=== PATIENT | male | born 1985 | race Caucasian/White ===

== ENCOUNTER 2017-03-05 08:29 | Observation (INO) ==
--- NOTE | 2017-03-05 08:54 | Emergency Department Note ---
Disposition Clinical Impression: Acute kidney injury Epileptic seizure Qualifiers: Epilepsy type: unspecified Intractability: not intractable Status epilepticus: without status epilepticus Qualified Code(s): G40.909 - Epilepsy, unspecified, not intractable, without status epilepticus Disposition: Admitted As Inpatient Condition: Good Referrals: NONE,PCP [Primary Care Provider] - Forms: ED Satisfaction Letter Time of Disposition: 09:29 Seizure HPI - General Chief Complaint: ED Seizure Stated Complaint: Seizures Time Seen by Provider: 03/05/17 08:50 Source: EMS Mode of arrival: other (Police) Limitations: no limitations Nursing Notes Reviewed: Yes Vital Signs Reviewed: Yes - History of Present Illness HPI Narrative: 31-year-old who has a seizure disorder comes in with apparent seizure. The patient is under the custody of police department apparently for a drug abuse. The patient states he is on a medication for seizures which he has a history of but he doesn't know the name when I review his records he was seen here in November and started on Keppra. Pt Subjective Complaint: seizure Onset (ago): Just [employer] Description of Episode: tonic-clonic movement Witnessed: yes - by bystander Associated trauma secondary to event: No Seizure History: known seizure disorder Place: other (Care Home) Possible Precipitating Event: drug use Associated symptoms: Reports: denies other symptoms Treatments prior to arrival: none - Related Data Previous Rx's Medication Instructions Recorded Nicotine Patch [Nicoderm] 14 mg TD DAILY 11/28/16 levETIRAcetam [Keppra] 1,000 mg PO Q12HR #60 tab 11/28/16 Allergies Allergy/AdvReac Type Severity Reaction Status Date / Time No Known Allergies Allergy Verified 10/02/15 11:09 All systems ED: reviewed and negative except as stated. Constitutional: Denies: fever, chills, weakness, weight change Eyes: Denies: eye pain, eye discharge, vision change ENT ED: Denies: ear pain, throat pain, dental pain, hearing loss, epistaxis, congestion, dysphagia Cardiovascular: Denies: chest pain, palpitations, dyspnea on exertion, edema, syncope Respiratory: Denies: cough, dyspnea, wheezes, hemoptysis, stridor Gastrointestinal: Denies: abdominal pain, nausea, vomiting, diarrhea, constipation, hematemesis, melena, hematochezia Genitourinary: Denies: urgency, dysuria, frequency, hematuria Musculoskeletal: Denies: back pain, neck pain, arthralgia, myalgia Integumentary: Denies: rash, abrasion, lesions Neurological: Reports: other (Recurrent seizures). Denies: headache, weakness, numbness, paresthesias, confusion, abnormal gait, vertigo Psychiatric: Denies: anxiety, depression, suicidal thoughts, homicidal thoughts , auditory hallucinations, visual hallucinations Endocrine: Denies: fatigue Hematological/Lymphatic: Denies: easy bleeding, easy bruising Allergic/Immunologic: Denies: facial swelling, urticaria Past Medical History - Past Medical History Medical history: Reports: seizures Psychiatric history: Reports: no psych history - Social History Smoking Status: Current every day smoker Smokeless Tobacco Status: No Alcohol use: Reports: none Drug use: Reports: none Physical Exam - General Limitations: no limitations General appearance: alert, in no apparent distress - Head Head exam: atraumatic, normocephalic, normal inspection - Eye Eye exam: Present: normal appearance, PERRL, EOMI - ENT ENT exam: normal exam, normal oropharynx, mucous membranes moist - Neck Neck exam: Present: normal inspection, full ROM, trachea midline - Chest Chest inspection: Present: normal inspection, symmetric chest wall rise - Respiratory Respiratory exam: Present: normal lung sounds bilaterally - Cardiovascular Cardiovascular exam: Present: regular rate, normal rhythm, normal heart sounds - Abdominal Exam Abdominal exam: Present: soft, Non-Tender. Absent: tenderness, distention, guarding, rebound, rigidity - Extremities Exam Extremities exam: Present: normal inspection, full ROM. Absent: tenderness, pedal edema - Expanded Lower Extremity Exam Neurovascular/Tendon exam: Absent: motor deficit, sensory deficit, tendon deficit Gait: not tested/not observed - Back Exam Back exam: Present: normal inspection, full ROM. Absent: tenderness - Neurological Exam Neurological exam: Present: alert, oriented X3 - Psychiatric Psychiatric exam: Present: normal affect, normal mood - Skin Skin exam: Present: warm, dry, intact, normal color Course - Reevaluation(s) Reevaluation #1: 31-year-old history of drug abuse who comes in with recurrent seizures. Patient also has a history of seizure disorder and is on Keppra. Labs are noted to show an acute kidney injury. Patient will be admitted for IV hydration and evaluation of seizures. Time: 09:37 - Consultations Consultation #1: Discussed with adm José Manuelit. Time: 09:36 Vital Signs Temperature 97.6 F 03/05/17 08:30 Pulse Rate 112 03/05/17 08:30 Respiratory Rate 24 03/05/17 08:30 Blood Pressure 122/88 03/05/17 08:30 O2 Sat by Pulse Oximetry 98 03/05/17 08:30 Temperature 97.6 F 03/05/17 08:30 Pulse Rate 112 03/05/17 08:30 Respiratory Rate 24 03/05/17 08:30 Blood Pressure 122/88 03/05/17 08:30 O2 Sat by Pulse Oximetry 98 03/05/17 08:30 Oxygen Delivery Oxygen Delivery Room Air Seizure - Lab Data Lab results reviewed: Yes I reviewed the patient's lab results. Result diagrams: 03/05/17 09:00 03/05/17 09:00 Lab Results 03/05/17 03/05/17 Range/Units 09:00 09:00 WBC 8.8 (4.3-11.1) K/mcL RBC 5.24 (4.19-5.50) M/mcL Hgb 15.1 (12.9-16.9) g/dL Hct 44.2 (37.5-50.1) % MCV 84.4 (83.0-100.0) fL MCH 28.8 (28.0-33.3) pg MCHC 34.2 (31.6-35.5) g/dL RDW 12.6 (11.5-14.5) % Plt Count 269 (140-400) K/mcL MPV 9.3 L (9.4-12.4) fL Immature Gran % 0.3 (0-4) % Seg Neutrophils % 75.5 % Lymphocytes % 16.4 % Monocytes % 7.6 % Eosinophils % 0.0 % Basophils % 0.2 % Neutrophils # 6.6 (1.6-8.9) K/mcL Lymphocytes # 1.4 (0.6-4.6) K/mcL Monocytes # 0.7 (0.0-1.3) K/mcL Eosinophils # 0.0 (0.0-0.6) K/mcL Basophils # 0.0 (0.0-0.2) K/mcL Sodium 135 L (136-145) mEq/L Potassium 3.8 (3.5-4.5) mEq/L Chloride 100 (98-109) mEq/L Carbon Dioxide 24 (19-29) mEq/L BUN 25 (8-26) mg/dL Creatinine 2.93 H (0.72-1.25) mg/dL Est GFR ( Amer) 30 L (> 60) Est GFR (Non-Af Amer) 25 L (> 60) BUN/Creatinine Ratio 9 (6-26) Glucose 120 H (70-99) mg/dL Calculated Osmolality 286 (280-300) Calcium 9.8 (8.6-10.8) mg/dL - EKG Data EKG attestation: Yes I reviewed and interpreted this EKG. EKG shows normal: sinus rhythm Rate: normal Rhythm: NSR Interpretation: no acute changes
[2017-03-05 09:07] LABS: Basophils % 0.2 %; Hematocrit 44.2 % (37.5-50.1); Hemoglobin 15.1 g/dL (12.9-16.9); Immature Granulocytes % 0.3 % (0-4); Lymphocytes # 1.4 K/mcL (0.6-4.6); Lymphocytes % 16.4 %; Mean Corpuscular HGB Conc 34.2 g/dL (31.6-35.5); Mean Corpuscular Hemoglobin 28.8 pg (28.0-33.3); Mean Corpuscular Volume 84.4 fL (83.0-100.0); Mean Platelet Volume 9.3 fL (9.4-12.4); Monocytes # 0.7 K/mcL (0.0-1.3); Monocytes % 7.6 %; Neutrophils # 6.6 K/mcL (1.6-8.9); Platelet Count 269 K/mcL (140-400); Red Blood Count 5.24 M/mcL (4.19-5.50); Red Cell Distribution Width 12.6 % (11.5-14.5); Segmented Neutrophils % 75.5 %
[2017-03-05 09:19] LABS: Calcium 9.8 mg/dL (8.6-10.8); Potassium 3.8 mEq/L (3.5-4.5)
[2017-03-05] MEDS ORDERED: 0.9 % Sodium Chloride 1,000 ML IVC ONE (09:25)
[2017-03-05 10:44] VITALS: BP 125/89
[2017-03-05] MEDS ORDERED: Naloxone 0.4 MG/ML INJ IVP PRN (11:17)
[2017-03-05] MEDS ORDERED: Ondansetron 4 MG/2 ML VIAL IVP PRN (11:17)
[2017-03-05] MEDS ORDERED: Acetaminophen 325 MG TABLET PO PRN (11:17)
[2017-03-05] MEDS ORDERED: 0.9 % Sodium Chloride 1,000 ML IVC SCH (11:30)
--- NOTE | 2017-03-05 11:40 | Internal Med History&Physical ---
<Cassi Duncan - Last Filed: 03/05/17 12:38> Date of Encounter: 03/05/17 Time of Encounter: 11:33 Assessment and Plan (1) Seizure Status: Acute 1 patient has a past history of seizures he has been noncompliant with his medications. He is a IV drug user Recently he has been in residential where he had a seizure this morning. We will give thousand milligrams of Keppra now and 500 twice a day adjust for AK I-I did review dosage with pharmacy due to AK I Continue with seizure precautions Keppra level has been obtained awaiting results Patient has not been compliant with [id number] consult is needed Ativan as needed for seizures (2) Acute kidney injury Status: Acute Patient's creatinine is elevated 2.93 baseline is less than 1 suspect related to dehydration. We will give IV fluids and recheck creatinine. No improvement we will contact nephrology Will avoid nephrotoxins and renally dose medications Maintain MAP greater than 60 (3) IV drug user Status: Acute Patient did go through rehabilitation in November however he has relapsed and is currently using heroin. We did discuss possible reentry to rehabilitation however he is not interested Monitor for withdrawal symptoms Seizure precautions (4) DVT prophylaxis Status: Acute Internal Medicine - H&P: HPI Chief complaint: seizure Admitted From: Emergency Dept Plans for Post Hospital Care: Home History of present illness: Mr. Hussein is a 31 year old male has medical history for seizure disorder chiari malformation, status post posterior fossa surgery. Patient has had seizures since he was approximately [age] years old and was on multiple seizure medication. At age 14 he had chiari malformation surgery and after the surgery his seizures significantly improved and he was off his medications. Patient is also a known IV drug user he was recently in drug rehabilitation in November and after discharge he had a seizure. He was admitted to this facility at that time and was initiated on Keppra thousand milligrams twice a day per neurology. Patient did not follow-up with neurology after discharge. Today he was arrested and in residential for drug abuse and had a seizure. He was brought to the ER for evaluation. Lab work was obtained which did show an AK I and he has been admitted for further workup and evaluation presently patient is alert and appropriate no seizure activity noted at this time. He is hemodynamically stable M Past Med Surg Social Fam HX - Past Medical History Medical history: seizures Psychiatric history: no psych history - Social History Smoking Status: Current every day smoker Packs per day: 2 Smokeless Tobacco Status: No Alcohol use: none Drug use: IV Drug Use - Family History Mother Living Status: Still Living Hx Family Cardiac Disorders: No Hx Family Respiratory Disorders: No Hx Family Cancer: No Hx Family GI Disorders: No Hx Family Endocrine Disorder: No Hx Family Neuromuscular Disorders: No Hx Family Neurologic Disorders: No Hx Family HEENT Disorders: No Hx Family Autoimmune Disorders: No Internal Medicine - H&P: Meds levETIRAcetam [Keppra] 1,000 mg PO Q12HR #60 tab 11/28/16 [Rx] 3 Allergy/AdvReac Type Severity Reaction Status Date / Time No Known Allergies Allergy Verified 10/02/15 11:09 All Systems PM: A 10-system review of systems was performed and is negative for pertinent findings except as documented above in the HPI. - Constitutional Constitutional: anorexia, weight loss, no chills, no fever(s), no night sweats - EENT Eyes: no change in vision, no discharge, no pain, no photophobia Nose, mouth and throat: no dysphagia, no nasal discharge, no neck pain, no sore throat - Cardiovascular Cardiovascular ROS IM: no chest pain, no diaphoresis, no dyspnea, no lightheadedness, no palpitations, no syncope - Respiratory Respiratory: cough - Gastrointestinal Gastrointestinal: no abdominal pain, no diarrhea, no hematemesis, no hematochezia, no melena, no nausea, no vomiting - Musculoskeletal Musculoskeletal ROS IM: no numbness, no tingling - Integumentary Integumentary IM: no rash, no unusual bruising - Neurological Neurological ROS: no confusion, no convulsions, no focal weakness, no numbness, no tingling, no tremor(s) - Hematologic/Lymphatic Hematologic/Lymphatic: no easy bruising - Constitutional Vitals: Temp Pulse Resp BP Pulse Ox 97.7 F 83 18 125/89 99 03/05/17 10:43 03/05/17 10:43 03/05/17 10:43 03/05/17 10:43 03/05/17 10:43 General appearance: Present: cachectic, A&O X 3 - Head Head exam: Present: atraumatic, normocephalic - Eye Eye exam: Present: PERRL, conjuntiva pink, sclera anicteric Pupils: Present: PERRL - Neck Neck exam general surgery: Present: supple, trachea midline. Absent: lymphadenopathy - Respiratory Respiratory exam: Present: CTAB. Absent: accessory muscle use, rales, rhonchi, wheezes - Cardiovascular Cardiovascular exam: Present: RRR, +S1, +S2. Absent: diastolic murmur, gallop, rubs, systolic murmur - GI/Abdominal GI/Abdominal exam: Present: normal bowel sounds, soft, no peritoneal signs. Absent: distended, tenderness - Extremities Exam Extremities exam: Present: warm, radial pulses palpable and symmetrical. Absent : calf tenderness, cyanotic, pedal edema - Neurological Exam Neurological exam: Present: CN II-XII intact, oriented X3, no focal deficits. Absent: pronater drift, facial droop, speech deficit - Skin Skin exam: Present: dry, intact Internal Med - H&P Results - Labs CBC & Chem 7: 03/05/17 09:00 03/05/17 09:00 <Yogesh Goodwin P - Last Filed: 03/08/17 07:46> Date of Encounter: 03/08/17 Internal Medicine - H&P: HPI History of present illness: Mr. Hussein is a 31 year old male All Systems PM: A 10-system review of systems was performed and is negative for pertinent findings except as documented above in the HPI. - Constitutional Vitals: Temp Pulse Resp BP Pulse Ox 97.7 F 83 18 125/89 99 03/05/17 10:43 03/05/17 10:43 03/05/17 10:43 03/05/17 10:43 03/05/17 10:43 Internal Med - H&P Results - Labs CBC & Chem 7: 03/05/17 09:00 03/05/17 09:00 - Attending Attestation I examined this patient and my medical decision-making was reviewed with the Resident Physician/[employer]. I agree with the documented findings, disposition and treatment plan as described except to the extent set forth below. patient seen and examined chart reviewed. Assessment and plan discussed with [employer] Agree with overall management.
[2017-03-05] MEDS ORDERED: levETIRAcetam 1,000 MG in 0.9 % Sodium Chloride 100 ML IVPB ONE (11:48)
[2017-03-05] MEDS ORDERED: Nicotine 21 MG PATCH.TD24 TD SCH (12:00)
--- NOTE | 2017-03-05 12:42 | Discharge Summary ---
<DakotaCassi Faust - Last Filed: 03/05/17 12:45> Date of Encounter: 03/05/17 Time of Encounter: 12:38 - Discharge Diagnosis (1) Seizure Priority: Primary Status: Acute Comments: She is noncompliant with medications encouraged patient to resume medications and to follow up with neurology (2) Acute kidney injury Priority: Secondary Status: Acute Comments: Encouraged patient to drink fluids again explained to patient that is a chaotic and worsened and he could end up with permanent renal damage. However patient requesting to leave against medical records technician (3) IV drug user Priority: Secondary Status: Acute Comments: Discussed drug rehabilitation with the patient who refused at this time - Discharge Medications Home Medications: levETIRAcetam [Keppra] 1,000 mg PO Q12HR #60 tab 11/28/16 [Rx] Allergies/Adverse Reactions: 3 Allergy/AdvReac Type Severity Reaction Status Date / Time No Known Allergies Allergy Verified 10/02/15 11:09 Date of admission: 03/05/17 09:43 Primary care physician: PCP NONE Consults: 03/05/17 11:21 Consult to Vice Investigator (W&C) [CONS] Routine Reason For Exam: Reason for SW Consult: discharge planning Discharging clinician: Cassi Duncan Anticipated date of discharge: 03/05/17 - Patient Status Disposition: Left Against Medical Advice Condition: Good Functional capacity at discharge: independent ambulation - Discharge Instructions Follow Up With: NONE,PCP [Primary Care Provider] - Interval History: Patient has known history of seizures and is noncompliant with his medications as well as known history of IV drug use. He was incarcerated in the [facility] long term when he had a seizure. He was brought to the ER and was found to have a KI. He was started on IV fluids after approximately a few hours the patient requested to leave. Advised the patient that if he were to leave it be AGAINST MEDICAL ADVICE. He verbalizes understanding however he insisted that he wanted to leave. Again explained to patient that he does need to stay in the hospital to receive IV fluids since he does have a KIN to continue workup for this as well as received medications for his seizures. If he were to leave he could succumb to renal failure increased seizure activity and/or which he verbalized understanding. Offered patient prescriptions for Her however he declined states he has medications at home. Patient was discharged AGAINST MEDICAL ADVICE Hospital course: Mr. Hussein is a 31 year old male - Time Spent with Patient Total time spent providing and/or coordinating discharge services: - Constitutional Vitals: Temp Pulse Resp BP Pulse Ox 97.7 F 83 18 125/89 99 03/05/17 10:43 03/05/17 10:43 03/05/17 10:43 03/05/17 10:43 03/05/17 10:43 General appearance: Present: cachectic, A&O X 3 - Head Head exam: Present: atraumatic, normocephalic - Eye Eye exam: Present: PERRL, conjuntiva pink, sclera anicteric Pupils: Present: PERRL - Neck Neck exam general surgery: Present: supple, trachea midline. Absent: lymphadenopathy - Respiratory Respiratory exam: Present: CTAB. Absent: accessory muscle use, rales, rhonchi, wheezes - Cardiovascular Cardiovascular exam: Present: RRR, +S1, +S2. Absent: diastolic murmur, gallop, rubs, systolic murmur - GI/Abdominal GI/Abdominal exam: Present: normal bowel sounds, soft, no peritoneal signs. Absent: distended, tenderness - Extremities Exam Extremities exam: Present: warm, radial pulses palpable and symmetrical. Absent : calf tenderness, cyanotic, pedal edema - Neurological Exam Neurological exam: Present: CN II-XII intact, oriented X3, no focal deficits. Absent: pronater drift, facial droop, speech deficit <Christa,Yogesh P - Last Filed: 03/08/17 07:50> Date of Encounter: 03/08/17 Date of admission: 03/05/17 09:43 Primary care physician: PCP NONE Consults: 03/05/17 11:21 Consult to Vice Investigator (W&C) [CONS] Routine Reason For Exam: Reason for SW Consult: discharge planning Hospital course: Mr. Hussein is a 31 year old male - Time Spent with Patient Total time spent providing and/or coordinating discharge services: - Constitutional Vitals: Temp Pulse Resp BP Pulse Ox 97.7 F 83 18 125/89 99 03/05/17 10:43 03/05/17 10:43 03/05/17 10:43 03/05/17 10:43 03/05/17 10:43 - Attending Attestation I examined this patient and my medical decision-making was reviewed with the Resident Physician/DIRECTOR CLINICAL DATA. I agree with the documented findings, disposition and treatment plan as described except to the extent set forth below. patient left AMA explained risk of leaving AMA to patient which includes infection, sepsis, septic shock and even he verblized understanding still left AMA.
[2017-03-06] MEDS ORDERED: levETIRAcetam 250 MG TABLET PO SCH
--- NOTE | 2017-03-07 10:53 | Electrocardiograph Report ---
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
== END 2017-03-05 12:37 | disposition left against medical advice (07) ==
LOC: 3BNU 08:29 → EMEROO 08:29 → 3BNU 10:04
PROVIDERS: ADMIT Internal Medicine; ATTEND Registered Nurse